=== PATIENT | female | born 1960 | race Caucasian/White ===

== ENCOUNTER 2017-03-07 13:35 | Outpatient (CLI) | payer BC ==
[2017-03-07] VITALS (12 sets, daily range): BP systolic 123–158; BP diastolic 61–78; PULSE 64–66; RESP 8–19; TEMP 97.5–97.9; O2SAT 96–100; Ht 182.9 cm; Wt 89.0 kg
[~2017-03-07] VITALS: Ht 182.9 cm; Wt 89.0 kg
[~2017-03-07 13:35] MED LIST: ACET-2723 PO; ACET250T3 PO; ASPI-557 PO; ATOR40TA64 PO; BIMA2.5D6 OP; BIOT1CAP3 PO; BRIM5DRO4 LEFT EYE; CALC667C PO; CARV12.52 PO; CHOL100055 PO; DOCU100T10 PO; DORZ10DR15 OP; FAMO20TA32 PO; FOLI1TAB15 PO; GLUC1KIT; INSU100C6 SQ; INSU100V8 SQ; LEVO50TA11 PO; NITR0.4T39 PO; NORMAL SALINE 1,000 ML IV SCH; POLY10DR3 OP; POLY17PO6 PO; TRAM50TA4 PO
--- NOTE | 2017-03-07 13:43 | NUR ---
ADMIT PT AMBULATORY TO ROOM 126. DENIES CP OR TIGHTNESS AT THIS TIME. AT BEDSIDE.
--- NOTE | 2017-03-07 14:19 | NUR ---
CM CM IN TO VISIT WITH PT. SHE IS ALERT AND ORIENTED. SHE PLANS TO DC HOME. SHE DENIES DC NEEDS. HER SPOUSE IS PRESENT. PT IS GIVEN CM CONTACT INFORMATION. Addendum: 03/07/17 at 1420 by STACIE ESPARZA RN Amended: Links added.
[2017-03-07 15:09] LABS: BASOPHILS # (AUTO) 0.1 T/MM3 (0-0.2); BASOPHILS % (AUTO) 0.6 % (0-2); EOSINOPHILS # (AUTO) 0.2 T/MM3 (0-0.5); EOSINOPHILS % (AUTO) 2.6 % (0-4); HCT - HEMATOCRIT 28.4 % (36-46); HGB - HEMOGLOBIN 8.7 GM/DL (12-16); IMMATURE GRANULOCYTE # (AUTO) 0.02 T/MM3 (0.00-0.03); IMMATURE GRANULOCYTE % (AUTO) 0.3 % (0.0-0.5); LYMPHOCYTES # (AUTO) 2.2 T/MM3 (1-4.8); LYMPHOCYTES % (AUTO) 28.4 % (23-45); MEAN CORPUSCULAR HGB 29.1 UUG (26-34); MEAN CORPUSCULAR HGB CONC(MCHC 30.6 GM/DL (31-37); MEAN PLATELET VOLUME 10.4 UM3 (9.4-12.4); MONOCYTES # (AUTO) 0.6 T/MM3 (0-0.8); MONOCYTES % (AUTO) 8.3 % (0-9.0); NEUTROPHILS #(AUTO)-ABSOLUTE 4.6 T/MM3 (1.8-7.7); NEUTROPHILS % (AUTO) 59.8 % (33-66); RED BLOOD COUNT 2.99 M/MM3 (4.00-5.20); WBC - WHITE BLOOD COUNT 7.7 T/MM3 (4.5-11.0)
[2017-03-07 15:19] LABS: ANION GAP 11 MEQ/L (5-15); BUN/CREATININE RATIO 11 RATIO (6-26); CALCIUM 8.4 MG/DL (8.4-10.2); CHLORIDE 109 MEQ/L (98-107); CO2 - CARBON DIOXIDE 20 MEQ/L (22-30); CREATININE 3.6 MG/DL (0.7-1.2); GLOMERULAR FILTRATION RATE 13; GLUCOSE 231 MG/DL (65-110); POTASSIUM 4.9 MEQ/L (3.6-5); SODIUM 140 MEQ/L (134-144)
[2017-03-07] MEDS ORDERED: HEPARIN 1,000units in NS 500ml BAG IV ONE (17:34)
[2017-03-07] MEDS ORDERED: LIDOCAINE 1% (10mg/ml) 30ml SDV ONE (17:34)
[2017-03-07] MEDS ORDERED: FENTANYL 100mcg/2ml INJECTION ONE (17:49)
[2017-03-07] MEDS ORDERED: MIDAZOLAM 2mg/2ml INJECTION ONE (17:49)
[2017-03-07] MEDS ORDERED: ONDANSETRON 4mg/2ml INJECTION ONE (17:49)
[2017-03-07] MEDS ORDERED: SALINE FLUSH 10ml SYRINGE ONE ×2 (18:11→18:14)
[2017-03-07] MEDS ORDERED: ONDANSETRON 4mg/2ml INJECTION IV PRN (18:45)
[2017-03-07] MEDS ORDERED: METOCLOPRAMIDE 10mg/2ml INJECTION IV PRN (18:45)
[2017-03-07] MEDS ORDERED: PROMETHAZINE 25 MG INJECTION IV PRN (18:45)
[2017-03-07] MEDS ORDERED: MAG-AL + SIM LIQUID 30 ML UDC PO PRN (18:45)
[2017-03-07] MEDS ORDERED: LORAZEPAM 1 MG TABLET PO PRN (18:45)
[2017-03-07] MEDS ORDERED: ACETAMINOPHEN 325 MG TABLET PO PRN (18:45)
[2017-03-07] MEDS ORDERED: ATROPINE 1 MG/ML VIAL IV PRN (18:45)
[2017-03-07] MEDS ORDERED: BISACODYL 5 MG E.C. TABLET PO PRN (18:45)
[2017-03-07] MEDS ORDERED: LORAZEPAM 2 MG/ML INJECTION IV PRN (18:45)
[2017-03-07] MEDS ORDERED: NITROGLYCERIN 0.4 MG SUBLINGUAL TABLET SL PRN (18:45)
[2017-03-07] MEDS ORDERED: MILK OF MAGNESIA 30 ML SUSP PO PRN (18:45)
[2017-03-07] MEDS ORDERED: BISACODYL 10 MG SUPPOSITORY RECTALLY PRN (18:45)
--- NOTE | 2017-03-07 18:50 | NUR ---
RETURN TO UNIT PATIENT RETURNS TO ROOM 126 VIA CART FROM THE MAKING LINE WORKER. PATIENT TRANSFERRED FROM CART TO BED VIA SLIDEBOARD AND ASSIST X2 FROM NURSING STAFF. ALERT AND ORIENTED X3. O2 RA. IVL IN PLACE. RIGHT GROIN CHECKED WITH JORGE IN MAKING LINE WORKER. DRESSING C/D/I. STRONG PEDAL PULSE. PATIENT FAMILY AT BEDSIDE. BED IN LOWEST POSITION, CALL LIGHT WITHIN REACH, SIDE RAILS UP X2, AND BED ALARM ACTIVATED.
[2017-03-07] MEDS ORDERED: INSULIN ASPART 100 UNIT/ML SQ ONE (21:45)
[2017-03-07] MEDS ORDERED: INSULIN GLARGINE 100 UNIT/ML SQ ONE (22:00)
--- NOTE | 2017-03-07 23:15 | NUR ---
DISMISSAL PATIENT HAS MET OUTPATIENT CRITERIA. RIGHT GROIN SITE REMAINS SOFT WITHOUT SIGNS OF HEMATOMA AFTER AMBULATION. DOES CONTINUE TO COMPLAIN OF SOME BACK PAIN-REPORTS CHRONIC BACK PROBLEMS. VERBAL AND WRITTEN DISCHARGE INSTRUCTIONS PROVIDED. VERBALIZED UNDERSTANDING. IVL DC'D INTACT. DISCHARGED TO HOME VIA ED ENTRANCE, DRIVEN BY SPOUSE. DISCHARGED WITH PERSONAL BELONGINGS.
--- NOTE | 2017-03-08 10:45 | CVPROF ---
DATE OF PROCEDURE March 07, 2017 REFERRING PHYSICIAN Bruno Moore MD INDICATION The patient is a pleasant 56-year-old lady with history of coronary artery disease and coronary artery bypass graft who was been having increasing chest pressure and tightness and despite negative thallium scan about six months ago she continues to have increasing symptoms and after discussing with the patient regarding options including medical management, stress test or heart catheterization, she wished to proceed with heart catheterization. INFORMED CONSENT Informed consent was obtained after explaining the procedure and the potential risks to the patient who agreed to proceed with the procedure. PROCEDURE 1. Left heart catheterization. 2. Coronary angiography. 3. Left ventriculography. 4. Bypass angiography. 5. Selective CASTILLO angiography. 6. Right femoral angiography to visualize the vessel for closure device. 7. Successful Mynx deployment for hemostasis. TECHNIQUE She was prepped and draped in the usual sterile techniques. Conscious sedation was performed using Versed and fentanyl. 1% lidocaine was used for local anesthesia. Using modified Seldinger technique, arterial access was obtained into the right femoral artery with placement of a 6-Khmer arterial sheath. LEFT VENTRICULOGRAPHY Left ventriculography in single-plane BURKS shallow projection showed LV systolic function was at the lower limits of normal with ejection fraction of about 50% with no mitral regurgitation or gradient across the aortic valve. LVEDP was about 14. CORONARY ANGIOGRAPHY Left main was free of significant lesions. Left anterior descending artery had an endovascular stent which had about 50-60% stenosis. Competitive flow was coming into the distal LAD through CASTILLO. The small diagonal had 90% stenosis, however, the caliber of diagonal was about 1-mm in diameter. Left circumflex artery was occluded proximally. Right coronary had about 40% stenosis proximally. Posterior descending artery had about 80-90% stenosis but very distally at which point the vessel was about 1 mm or less in diameter. CASTILLO to LAD was widely patent. A vein graft to first and second marginals was patent with excellent flow. Right femoral angiography showed patent common femoral, proximal SFA and profunda and therefore Mynx was used for hemostasis. IMPRESSION 1. LV function at the lower limits of normal with ejection fraction of about 50%. 2. Coronary artery disease as described above, however grafts are patent. The patient has small vessel disease. 3. Successful Mynx deployment for hemostasis. PLAN Medical management. NAJMA
--- NOTE | 2017-03-08 12:17 | NUR ---
Dietary Consult R/T DM/Renal/Cardiac Diet Pt here less than 24 hours and discharged before being seen by RD. RD will contact pt to offer outpt MNT
== END 2017-03-07 23:15 | disposition home or self-care (01) ==
LOC: CATH 13:35 → SRG 13:36 → CATH 23:15
PROVIDERS: ATTEND Internal Medicine Cardiovascular Disease
DX: I25.810 Atherosclerosis of coronary artery bypass graft(s) without angina pectoris (principal); R07.2 Precordial pain; I25.5 Ischemic cardiomyopathy; E78.2 Mixed hyperlipidemia; I12.0 Hypertensive chronic kidney disease with stage 5 chronic kidney disease or end stage renal disease; N18.6 End stage renal disease; Z99.2 Dependence on renal dialysis; E11.22 Type 2 diabetes mellitus with diabetic chronic kidney disease; F32.9 Major depressive disorder, single episode, unspecified; E07.9 Disorder of thyroid, unspecified; J30.2 Other seasonal allergic rhinitis; I25.2 Old myocardial infarction; Z79.82 Long term (current) use of aspirin; Z79.4 Long term (current) use of insulin; Z79.899 Other long term (current) drug therapy
CPT/HCPCS: 36415; 80048; 82948; 85025; 93005; C1760; C1893; J0360; J1644; J2250; J2405; J3010; Q9967; 93458; 93459